=== PATIENT | male | born 1995 | race Caucasian/White ===

== ENCOUNTER → 2021-06-07 | Outpatient (CLI) | payer OTHER | LOC: EXRD 09:06 | DX: R79.89 Other specified abnormal findings of blood chemistry (principal); R16.1 Splenomegaly, not elsewhere classified | CPT/HCPCS: 76700 ==

== ENCOUNTER → 2021-12-12 | Outpatient (CLI) | payer OTHER ==
[~2021-12-12] VITALS: Ht 182.9 cm; Wt 111.1 kg
== END ==
LOC: EROP 12:18
DX: U07.1 COVID-19 (principal); Z23 Encounter for immunization
CPT/HCPCS: M0247; Q0247